=== PATIENT | female | born 1985 | race Caucasian/White ===

== ENCOUNTER 2017-08-11 07:11 | Day surgery (SDC) | payer BC ==
[~2017-08-11] VITALS: Ht 175.3 cm; Wt 117.4 kg
[~2017-08-11 07:11] MED LIST: BIOTIN 5000MCG PO; CYANOCOBALAM1000 MCG PO
[2017-08-11 07:43] VITALS: BP 131/84
[2017-08-11] MEDS ORDERED: MOTRIN800 MG PO (09:44)
[2017-08-11] MEDS ORDERED: NORCO 5/3251 TABLET PO (09:44)
[2017-08-11 10:43] VITALS: BP 118/64
[2017-08-11 11:28] VITALS: BP 105/67
== END 2017-08-11 11:45 | disposition home or self-care (01) ==
LOC: SDC 07:11
DX: N84.0 Polyp of corpus uteri (principal); D25.1 Intramural leiomyoma of uterus; E66.9 Obesity, unspecified; Z68.30 Body mass index [BMI] 30.0-30.9, adult; E28.39 Other primary ovarian failure; Z87.442 Personal history of urinary calculi; F17.200 Nicotine dependence, unspecified, uncomplicated; F41.8 Other specified anxiety disorders; Z82.49 Family history of ischemic heart disease and other diseases of the circulatory system; Z83.3 Family history of diabetes mellitus
CPT/HCPCS: 88305; J0131; J1100; J1885; J2175; J2250; J2405; J3010; Q0175